=== PATIENT | female | born 1955 | race Caucasian/White ===

== ENCOUNTER 2023-09-02 17:26 | Emergency (ER) | payer BC, MEDICARE, OTHER ==
[2023-09-02] MEDS ORDERED: Naloxone 0.4 MG/ML SDV IVPUSH PRN (18:44)
[2023-09-02] MEDS: HYDROmorphone 1 MG/ML Syringe IM ONE (18:56)
[2023-09-02] MEDS: Ketorolac 30 MG/ML SDV IM ONE (20:41)
== END 2023-09-02 21:36 | disposition home or self-care (01) ==
LOC: JP.ED 17:26
DX: S80.01XA Contusion of right knee, initial encounter (principal); I10 Essential (primary) hypertension; K21.9 Gastro-esophageal reflux disease without esophagitis; Z88.2 Allergy status to sulfonamides; Z79.899 Other long term (current) drug therapy; W19.XXXA Unspecified fall, initial encounter
CPT/HCPCS: 73562; 96372; 99283; J1170; J1885